=== PATIENT | female | born 1950 | race Caucasian/White ===

== ENCOUNTER 2019-02-13 15:05 | Emergency (ER) | payer MEDICARE, OTHER ==
[~2019-02-13] VITALS: Ht 165.1 cm; Wt 83.0 kg
[2019-02-13] MEDS ORDERED: KETOROLAC 30 MG/ML VIAL IVP ONE (15:30)
[2019-02-13 15:34] LABS: COLOR,URINE YELLOW
[2019-02-13 15:35] LABS: BILIRUBIN,URINE NEGATIVE (NEGATIVE); CLARITY,URINE CLOUDY; GLUCOSE, URINE (UA) NEGATIVE (NEGATIVE); KETONES,URINE NEGATIVE (NEGATIVE); LEUKOCYTE ESTERASE ,URINE 1+ (NEGATIVE); NITRITE,URINE NEGATIVE (NEGATIVE); PROTEIN,URINE NEGATIVE (NEGATIVE); RBC,URINE >100 /HPF; SQUAMOUS EPITHELIAL CELL,UR 0-2 /HPF
--- NOTE | 2019-02-13 15:40 | ED GU-Female ---
General Chief Complaint: - Urinary Stated Complaint: POSS KIDNEY STONE - SENT FROM Source: patient, family Exam Limitations: no limitations History of Present Illness Date Seen by Provider: Feb 13, 2019 Time Seen by Provider: 15:25 Initial Comments Patient presents to ER by private conveyance from urgent care with chief complaint she thinks she has a kidney stone. She's had left-sided flank pain where she thinks she popped a rib out while lifting a heavy case of water one week ago on Friday. The past couple days her flank pain is radiated around to her left side and she feels that she had a UTI so she went to urgent care and they told her she had low blood in her urine. She has a remote history of kidney stones. She has not had any NSAIDs or Tylenol today. She's had no fevers but she has had nausea for the past 2 days. She denies nausea presently. She rates her pain as constant, 7 out of 10. Allergies and Home Medications Allergies Coded Allergies: Penicillins (Verified Allergy, Unknown, hives, swelling, 02/13/19) Patient Home Medication List Home Medication List Reviewed: Yes Review of Systems Review of Systems Constitutional: No chills, No diaphoresis, No fever EENTM: No hearing loss, No ear pain Respiratory: No cough, No dyspnea on exertion Cardiovascular: No chest pain, No palpitations Gastrointestinal: No abdominal pain, No constipation, No diarrhea Genitourinary: burning, dysuria Musculoskeletal: see HPI, back pain; No joint pain Past Zivsjyn-Ueklcb-Jnjhjl Hx Patient Social History Alcohol Use: Denies Use Recreational Drug Use: No Smoking Status: Never a Smoker Physical Exam Vital Signs Vital Signs - First Documented 02/13/19 15:10 Temp 97.9 Pulse 85 Resp 18 B/P (MAP) 129/86 (100) Pulse Ox 97 Capillary Refill : Height, Weight, BMI Height: '" Weight: lbs. oz. kg; BMI Method: General Appearance: WD/WN, mild distress HEENT: PERRL/EOMI, pharynx normal Neck: non-tender, full range of motion Cardiovascular: normal peripheral pulses, regular rate, rhythm Respiratory: no respiratory distress, no accessory muscle use Gastrointestinal: non tender, soft Back: normal inspection, no vertebral tenderness; No CVA tenderness (R); CVA tenderness (L) Extremities: normal inspection, no pedal edema, normal capillary refill Neurologic/Psychiatric: alert, normal mood/affect, oriented x 3 Skin: normal color, warm/dry Progress/Results/Core Measures Suspected Sepsis SIRS Temperature: Pulse: Respiratory Rate: Blood Pressure / Mean: Results/Orders Lab Results Laboratory Tests Test 02/13/19 15:11 Range/Units Urine Color YELLOW Urine Clarity CLOUDY Urine pH 7.0 5-9 Urine Specific [place] 1.010 L 1.016-1.022 Urine Protein NEGATIVE NEGATIVE Urine Glucose (UA) NEGATIVE NEGATIVE Urine Ketones NEGATIVE NEGATIVE Urine Nitrite NEGATIVE NEGATIVE Urine Bilirubin NEGATIVE NEGATIVE Urine Urobilinogen 2.0 NORMAL MG/DL Urine Leukocyte Esterase 1+ H NEGATIVE Urine RBC (Auto) 3+ H NEGATIVE Urine RBC >100 H /HPF Urine WBC 2-5 /HPF Urine Squamous Epithelial Cells 0-2 /HPF Urine Crystals NONE /LPF Urine Bacteria NONE /HPF Urine Casts NONE /LPF Urine Mucus NEGATIVE /LPF Urine Culture Indicated NO My Orders Orders - THEODORA MITCHELL Ua Culture If Indicated (02/13/19 15:06) Ketorolac Injection (Toradol Injection) (02/13/19 15:30) Ct Abdomen/Pelvis Wo (02/13/19 15:28) Abdomen (Kub) 1 View (02/13/19 15:28) Ed Iv/Invasive Line Start (02/13/19 15:29) Sulfamethoxazole/Trimet Ds Tab (Bactrim (02/13/19 15:45) Medications Given in ED Current Medications Medications Dose Ordered Sig/Denny Route Start Time Stop Time Status Last Admin Dose Admin Ketorolac Tromethamine 30 mg ONCE ONCE IVP 02/13/19 15:30 02/13/19 15:31 DC 02/13/19 15:34 30 MG Trimethoprim/ Sulfamethoxazole 1 ea ONCE ONCE PO 02/13/19 15:45 02/13/19 15:46 DC 02/13/19 15:55 1 EA Vital Signs/I&O 02/13/19 15:10 Temp 97.9 Pulse 85 Resp 18 B/P (MAP) 129/86 (100) Pulse Ox 97 Capillary Refill : Progress Note : Time: 15:36 Progress Note Her stated allergy to penicillin is anaphylaxis. We'll start with a tablet of Bactrim. She's not able to produce any urine presently but she did produce a urine at urgent care. Toradol for her pain and a CT of the abdomen pelvis with a KUB 1 view. We should be able to see the base of her ribs on the left side on a CT scan to rule out fracture. She has declined anything for nausea at this time. Diagnostic Imaging Diagonstic Imaging: Xray Plain Films/CT/US/NM/MRI: abdomen (kub 1v) Comments Nonspecific bowel gas pattern. NAME: JAMAAL SAMS [facility] REC#: [id number] PT STATUS: REG ER : 1950 PHYSICIAN: THEODORA MITCHELL MD ADMIT DATE: 02/13/19/ER FS Draft Date of Exam:02/13/19 ABDOMEN (KUB) 1 VIEW IMPRESSION: Left flank pain. EXAMINATION: Supine abdomen at 3:26 p.m. A single supine view of the abdomen was obtained. COMPARISON: There are no prior studies available for comparison. FINDINGS: There is some gas in both the large and small bowel in a nonspecific fashion. There is no evidence for a bowel obstruction. There is no mass, organomegaly or pathological calcification evident. There does appear to be A fair amount of fecal material in the transverse colon. The osseous structures are intact. IMPRESSION: 1. The bowel gas pattern is nonspecific. There is no acute abnormality identified. 2. Reportedly, CT of the abdomen and pelvis is pending for further study. Dictated on workstation # [id number] Dict: 02/13/19 1550 Trans: 02/13/[address] [facility] [id number] Interpreted by: SARBJIT LEI MD Electronically signed by: Reviewed: Reviewed by Co Diagonstic Imaging: CT (without IV contrast kidney stone study) Plain Films/CT/US/NM/MRI: abdomen, pelvis Comments Without ureteral dilatation or secondary signs of fat stranding or inflammation of the kidney. No stone seen. No acute osseus abnormalities. NAME: JAMAAL SAMS [facility] REC#: [id number] PT STATUS: REG ER : 1950 PHYSICIAN: THEODORA MITCHELL MD ADMIT DATE: 02/13/19/ER FS Draft Date of Exam:02/13/19 CT ABDOMEN/PELVIS WO PROCEDURE: CT abdomen and pelvis without contrast. TECHNIQUE: Multiple contiguous axial images were obtained through the abdomen and pelvis without the use of intravenous contrast. Auto Exposure Controls were utilized during the CT exam to meet ALARA standards for radiation dose reduction. INDICATION: Left flank pain. FINDINGS: There are no prior studies available for comparison. There is no evidence for nephrolithiasis or urolithiasis and the kidneys do not seem to be obstructed. There is no solid renal mass identified either. The urinary bladder is not well distended and consequently difficult to assess. There is no definite bladder abnormality noted. The uterus is surgically absent. The appendix is visualized and is not abnormally thickened. There is a small fat-containing retroumbilical hernia. There is no incarceration or obstruction of the bowel due to the hernia. The liver, spleen, pancreas, adrenals, aorta, and inferior vena cava are unremarkable for an acute abnormality. The gallbladder is surgically absent. The stomach is partially filled with fluid and particular matter and consequently difficult to assess. The lung bases are clear. The bone windows show no evidence for a fracture or for a destructive lesion. There is fairly severe degenerative disc and bony disease at L5-S1. IMPRESSION: 1. There is no evidence for an acute abnormality of the abdomen or pelvis. In particular, there is no sign of obstruction of the left collecting system by a calculus. 2. The uterus and gallbladder are surgically absent. Dictated on workstation # [id number] Dict: 02/13/19 1554 Trans: 02/13/19 1603 [id number] Interpreted by: SARBJIT LEI MD Electronically signed by: Reviewed: Reviewed by Me Departure Impression Primary Impression: Urinary tract infection Qualified Codes: N30.01 - Acute cystitis with hematuria Additional Impressions: Rib sprain Qualified Codes: S23.41XA - Sprain of ribs, initial encounter Hematuria Qualified Codes: R31.9 - Hematuria, unspecified Disposition: HOME, SELF-CARE Condition: Stable Departure-Patient Inst. Decision time for Depature: 16:09 Referrals: [facility] (PCP) Primary Care Physician CARSON BABIN APRN (Family) Primary Care Physician NINFA STERLING MD Patient Instructions: Acute Cystitis (DC), RIB CONTUSION Add. Discharge Instructions: Drink plenty of fluids. Ibuprofen 800 mg every 8 hours as needed for pain. Hydrocodone one tablet every 4-6 hours as needed for breakthrough pain. Zofran 1 tablet every 6 hours under the tongue as needed for nausea. Bactrim one tablet twice daily with food to treat the infection. On Friday call Dr. Sterling, urology and request follow-up appointment in the clinic. All discharge instructions reviewed with patient and/or family. Voiced und erstanding. Scripts Hydrocodone Bit/Acetaminophen (Hydrocodone/Acetaminophen 5/325mg Tablet) 1 Tab Tab 1 EACH PO Q4-6HR PRN for PAIN-MODERATE MDD 10 for 3 Days, #10 TAB 0 Refills Prov: THEODORA MITCHELL 02/13/19 Ondansetron (Ondansetron Odt) 4 Mg Tab.rapdis 4 MG PO Q6H PRN for NAUSEA/VOMITING, #8 TAB 0 Refills Prov: THEODORA MITCHELL 02/13/19 Sulfamethoxazole/Trimethoprim (Bactrim Ds Tablet) 1 Each Tablet 1 EACH PO BID for 7 Days, #14 TAB 0 Refills Prov: THEODORA MITCHELL 02/13/19 Copy Copies To 1: NINFA STERLING MD, TITUS J Feb 13, 2019 15:40
[2019-02-13] MEDS ORDERED: TRIM/SULFAMETH 160/800 (SEPTRA DS) TAB PO ONE (15:45)
--- NOTE | 2019-02-13 16:01 | Diagnostic Imaging Report ---
IMPRESSION: Left flank pain. EXAMINATION: Supine abdomen at 3:26 p.m. A single supine view of the abdomen was obtained. COMPARISON: There are no prior studies available for comparison. FINDINGS: There is some gas in both the large and small bowel in a nonspecific fashion. There is no evidence for a bowel obstruction. There is no mass, organomegaly or pathological calcification evident. There does appear to be A fair amount of fecal material in the transverse colon. The osseous structures are intact. IMPRESSION: 1. The bowel gas pattern is nonspecific. There is no acute abnormality identified. 2. Reportedly, CT of the abdomen and pelvis is pending for further study. Dictated by: Dictated on workstation # [id number]
--- NOTE | 2019-02-13 16:04 | Diagnostic Imaging Report ---
PROCEDURE: CT abdomen and pelvis without contrast. TECHNIQUE: Multiple contiguous axial images were obtained through the abdomen and pelvis without the use of intravenous contrast. Auto Exposure Controls were utilized during the CT exam to meet ALARA standards for radiation dose reduction. INDICATION: Left flank pain. FINDINGS: There are no prior studies available for comparison. There is no evidence for nephrolithiasis or urolithiasis and the kidneys do not seem to be obstructed. There is no solid renal mass identified either. The urinary bladder is not well distended and consequently difficult to assess. There is no definite bladder abnormality noted. The uterus is surgically absent. The appendix is visualized and is not abnormally thickened. There is a small fat-containing retroumbilical hernia. There is no incarceration or obstruction of the bowel due to the hernia. The liver, spleen, pancreas, adrenals, aorta, and inferior vena cava are unremarkable for an acute abnormality. The gallbladder is surgically absent. The stomach is partially filled with fluid and particular matter and consequently difficult to assess. The lung bases are clear. The bone windows show no evidence for a fracture or for a destructive lesion. There is fairly severe degenerative disc and bony disease at L5-S1. IMPRESSION: 1. There is no evidence for an acute abnormality of the abdomen or pelvis. In particular, there is no sign of obstruction of the left collecting system by a calculus. 2. The uterus and gallbladder are surgically absent. Dictated by: Dictated on workstation # [id number]
[2019-02-13] MEDS ORDERED: SULF1TAB35 PO (16:18)
[2019-02-13] MEDS ORDERED: ONDA4TAB11 PO (16:18)
[2019-02-13] MEDS ORDERED: ACHD5005 PO (16:18)
[2019-02-13 16:30] VITALS: BP 138/72
== END 2019-02-13 16:45 | disposition home or self-care (01) ==
LOC: MERGE 15:07 → ER FS 15:07
DX: S23.41XA Sprain of ribs, initial encounter (principal); N39.0 Urinary tract infection, site not specified; R31.9 Hematuria, unspecified; Z88.0 Allergy status to penicillin; Z87.442 Personal history of urinary calculi; X50.0XXA Overexertion from strenuous movement or load, initial encounter
CPT/HCPCS: 74018; 74176; 81000; 96374